=== PATIENT | female | born 1980 | race Caucasian/White ===

== ENCOUNTER → 2016-08-08 | Outpatient (CLI) | payer BC | END | disposition short-term general hospital (02) | LOC: CLCARD 10:06 | DX: R00.2 Palpitations (principal); Z88.0 Allergy status to penicillin ==

== ENCOUNTER → 2016-08-22 | Outpatient (CLI) | payer BC | END | disposition short-term general hospital (02) | LOC: CLCARD 08:31 | DX: R00.2 Palpitations (principal) ==